=== PATIENT | female | born 1970 | race Hispanic/Latino ===

== ENCOUNTER 2020-10-25 13:49 | Emergency (ER) | payer SELFPAY ==
[~2020-10-25] VITALS: Ht 157.5 cm; Wt 88.0 kg
== END 2020-10-25 15:05 | disposition home or self-care (01) ==
LOC: ER 14:25
DX: R21 Rash and other nonspecific skin eruption (principal); T78.40XA Allergy, unspecified, initial encounter
CPT/HCPCS: 99283

== ENCOUNTER 2025-03-27 07:40 | Inpatient (IN) | payer BC ==
[~2025-03-27] VITALS: Ht 157.5 cm; Wt 89.8 kg
[2025-03-27 08:58] LABS: BASOPHILS % 0.1 % (0.0-1.0); EOSINOPHILS % 0.0 % (0.0-6.0); LYMPHOCYTES % 13.8 % (18.0-39.1); MONOCYTES % 5.5 % (4.4-11.3); NEUTROPHILS % 80.2 % (38.7-80.0); RED CELL DISTRIBUTION WIDTH 13.2 % (11.7-14.4)
[2025-03-27 09:23] LABS: EST GLOMERULAR FILTRATION RATE 80.0 ML/MIN (>=60)
[2025-03-27] MEDS: SODIUM CHLORIDE 0.9% 1000ML 1,000 ML IV ONE (09:36)
[2025-03-27] MEDS: KETOROLAC TROMETHAMINE 30 MG/ML VIAL IV STA ×2 (09:36→20:04)
[2025-03-27] MEDS: ONDANSETRON HCL INJ 2MG/ML 2ML 2 MG/ML VIAL IV STA (09:37)
[2025-03-27] MEDS ORDERED: IOPAMIDOL 370 MG/ML 100 ML INFUS..BTL INJ ONE (09:40)
[2025-03-27] MEDS: SODIUM CHLORIDE 0.9% 1000ML 1,000 ML IV SCH (11:26)
[2025-03-27 18:19] VITALS: RESP 14; TEMP 98.1
[2025-03-27] MEDS ORDERED: ONDANSETRON HCL INJ 2MG/ML 2ML 2 MG/ML VIAL IV PRN (19:15)
[2025-03-27] MEDS: ONDANSETRON HCL INJ 2MG/ML 2ML 2 MG/ML VIAL IV PRN (20:03)
[2025-03-27] MEDS: Morphine 4mg INJECTION 4 MG/ML INJ IV PRN (20:04)
[2025-03-27 20:05] VITALS: PULSE 77
[2025-03-27 20:50] VITALS: BP 130/61; PULSE 63; RESP 18; TEMP 99; O2SAT 97
[2025-03-27 21:00] VITALS: BP 130/61; PULSE 63; RESP 18; TEMP 99; O2SAT 97
[2025-03-27] MEDS ORDERED: AMLODIPINE-OLM1 EACH PO (21:12)
[2025-03-27] MEDS ORDERED: DULOXETINE HCL20 MG PO (21:12)
[2025-03-27] MEDS ORDERED: PREGABALIN50 MG PO (21:12)
[2025-03-27 21:30] VITALS: BP 130/61; PULSE 63; RESP 18; TEMP 99; O2SAT 97
[2025-03-27] MEDS ORDERED: SEVOFLURANE INHAL SOLN 250 ML PEN BTL ONE (23:05)
[2025-03-28] VITALS: BP 134/64; PULSE 65; RESP 18; TEMP 99.2; O2SAT 99
[2025-03-28 05:00] LABS: BASOPHILS % 0.3 % (0.0-1.0); EOSINOPHILS % 0.6 % (0.0-6.0); LYMPHOCYTES % 37.2 % (18.0-39.1); MONOCYTES % 9.3 % (4.4-11.3); NEUTROPHILS % 52.5 % (38.7-80.0); RED CELL DISTRIBUTION WIDTH 13.2 % (11.7-14.4)
[2025-03-28 05:13] LABS: INR 1.08
[2025-03-28 05:29] LABS: EST GLOMERULAR FILTRATION RATE 74.0 ML/MIN (>=60)
[2025-03-28 09:58] VITALS: BP 121/67; PULSE 98; RESP 20; TEMP 99; O2SAT 100
[2025-03-28 11:58] VITALS: BP 146/70; PULSE 59; RESP 18; TEMP 99; O2SAT 100
[2025-03-28 16:27] VITALS: BP 117/51; PULSE 64; RESP 18; TEMP 99; O2SAT 100
[2025-03-28] MEDS ORDERED: PROPOFOL IV EMULSION 10 MG/ML 20 ML VIAL ONE (17:06)
[2025-03-28] MEDS ORDERED: MIDAZOLAM HCL 2 MG/2 ML VIAL ONE (17:07)
[2025-03-28] MEDS ORDERED: FENTANYL CITRATE/PF 100MCG/2 ML INJ ONE (17:07)
[2025-03-28] MEDS ORDERED: ROCURONIUM BROMIDE 1 ML IV ONE (17:07)
[2025-03-28] MEDS ORDERED: KETOROLAC TROMETHAMINE 30 MG/ML VIAL ONE (17:09)
[2025-03-28] MEDS ORDERED: DEXAMETHASONE SOD PHOS INJ 4 MG/ML SDV ONE (17:09)
[2025-03-28] MEDS ORDERED: LIDOCAINE HCL 2% LOCAL INJ 5 ML SDV VIAL INJ ONE (17:09)
[2025-03-28] MEDS ORDERED: ONDANSETRON HCL INJ 2MG/ML 2ML 2 MG/ML VIAL ONE (17:09)
[2025-03-28] MEDS ORDERED: LABETALOL HCL 20 ML ONE (17:41)
[2025-03-28] MEDS ORDERED: ACETAMINOPHEN 1000 MG/100 ML 100 ML IV ONE (18:30)
[2025-03-28] MEDS ORDERED: HYDROCODONE/APAP 7.5MG-325MG 1 EA TAB PO PRN (19:00)
[2025-03-28 20:00] VITALS: BP 136/73; PULSE 64; RESP 18; TEMP 98; O2SAT 98
[2025-03-28 21:00] VITALS: BP 136/73; PULSE 64; RESP 18; TEMP 98; O2SAT 98
[2025-03-28] MEDS: KETOROLAC TROMETHAMINE 30 MG/ML VIAL IV PRN (23:20)
[2025-03-29 04:00] VITALS: BP 134/73; PULSE 69; RESP 18; TEMP 98.7; O2SAT 100
[2025-03-29 05:24] LABS: BASOPHILS % 0.1 % (0.0-1.0); EOSINOPHILS % 0.0 % (0.0-6.0); LYMPHOCYTES % 16.1 % (18.0-39.1); MONOCYTES % 3.4 % (4.4-11.3); NEUTROPHILS % 80.1 % (38.7-80.0); RED CELL DISTRIBUTION WIDTH 12.9 % (11.7-14.4)
[2025-03-29 05:57] LABS: EST GLOMERULAR FILTRATION RATE 89.0 ML/MIN (>=60)
[2025-03-29 08:47] VITALS: BP 127/68; PULSE 60; RESP 18; TEMP 98; O2SAT 98
[2025-03-29 09:00] VITALS: BP 127/68; PULSE 60; RESP 18; TEMP 98; O2SAT 98
[2025-03-29 14:04] VITALS: BP 130/67; PULSE 65; RESP 18; TEMP 98.1; O2SAT 100
[2025-03-29 18:15] VITALS: BP 163/72; PULSE 57; RESP 18; TEMP 98.8; O2SAT 100
== END 2025-03-29 20:10 | disposition home or self-care (01) | DRG 418 ==
LOC: ER 07:46 → ERHOLD 11:03 → MED/SURG 20:51 → OBSVTOIN 03-28 08:47
PROVIDERS: ADMIT Family Medicine; ATTEND Family Medicine
PROC: 0FC84ZZ Extirpation of Matter from Cystic Duct, Percutaneous Endoscopic Approach (ICD-10-PCS; 2025-03-28)
PROC: 0FT44ZZ Resection of Gallbladder, Percutaneous Endoscopic Approach (ICD-10-PCS; principal; 2025-03-28 17:12)
DX: K80.63 Calculus of gallbladder and bile duct with acute cholecystitis with obstruction (principal); Q43.8 Other specified congenital malformations of intestine; K66.0 Peritoneal adhesions (postprocedural) (postinfection); I10 Essential (primary) hypertension; G62.9 Polyneuropathy, unspecified; M54.50 Low back pain, unspecified; Z79.84 Long term (current) use of oral hypoglycemic drugs; Z88.5 Allergy status to narcotic agent
CPT/HCPCS: 36415; 74177; 76705; 80053; 83690; 85025; 85610; 85730; 88304; 93005; 99284; C1766; G0378; J1100; J1885; J2003; J2250; J2270; J2405; J2543; J7030; Q9967